=== PATIENT | male | born 1990 | race Asian ===

== ENCOUNTER 2021-05-06 07:10 | Day surgery (SDC) | payer OTHER, SELFPAY ==
[~2021-05-06] VITALS: Ht 188 cm; Wt 110.2 kg
[2021-05-06] MEDS ORDERED: LIDOCAINE 2% 100 MG/5 ML UJET TP ONE (08:16)
[2021-05-06] MEDS ORDERED: MIDAZOLAM 5 MG/5 ML VIAL ONE (08:16)
[2021-05-06] MEDS ORDERED: diphenhydrAMINE 50 MG/ML VIAL ONE (08:16)
[2021-05-06] MEDS ORDERED: fentaNYL citrate 0.05 MG/ML VIAL ONE (08:16)
[2021-05-06] MEDS ORDERED: SIMETHICONE 40 MG/0.6 ML ONE (08:17)
[2021-05-06] MEDS ORDERED: MIDAZOLAM 2 MG/2 ML VIAL IVP ONE (12:30)
[2021-05-06] MEDS ORDERED: fentaNYL citrate 0.05 MG/ML VIAL IVP ONE (12:30)
[2021-05-06] MEDS ORDERED: diphenhydrAMINE 50 MG/ML VIAL IVP ONE (12:30)
== END 2021-05-06 09:20 | disposition home or self-care (01) ==
LOC: MFCC 07:10 → MDS 07:10
PROVIDERS: ATTEND Internal Medicine Gastroenterology
DX: K62.5 Hemorrhage of anus and rectum (principal); K11.7 Disturbances of salivary secretion; F25.0 Schizoaffective disorder, bipolar type; K59.00 Constipation, unspecified; F17.210 Nicotine dependence, cigarettes, uncomplicated; Z80.0 Family history of malignant neoplasm of digestive organs; Z79.899 Other long term (current) drug therapy
CPT/HCPCS: 45378; 87426; J1200; J2250; J3010

== ENCOUNTER 2021-11-25 07:06 | Day surgery (SDC) | payer OTHER ==
[~2021-11-25] VITALS: Ht 188 cm; Wt 111.1 kg
[2021-11-25] MEDS ORDERED: MIDAZOLAM 5 MG/5 ML VIAL ONE (08:47)
[2021-11-25] MEDS ORDERED: fentaNYL citrate 0.05 MG/ML VIAL ONE ×3 (08:47→09:22)
[2021-11-25] MEDS ORDERED: diphenhydrAMINE 50 MG/ML VIAL ONE ×2 (08:47→09:21)
[2021-11-25] MEDS ORDERED: MIDAZOLAM 2 MG/2 ML VIAL ONE (09:22)
[2021-11-25] MEDS: MIDAZOLAM 2 MG/2 ML VIAL IVP ONE (09:28)
[2021-11-25] MEDS: fentaNYL citrate 0.05 MG/ML VIAL IVP ONE (09:29)
[2021-11-25] MEDS: diphenhydrAMINE 50 MG/ML VIAL IVP ONE (09:30)
== END 2021-11-25 09:59 | disposition home or self-care (01) ==
LOC: MDS 07:06 → MMU 07:07 → MDS 09:59
PROVIDERS: ATTEND Internal Medicine Gastroenterology
DX: K59.00 Constipation, unspecified (principal); K29.50 Unspecified chronic gastritis without bleeding; K44.9 Diaphragmatic hernia without obstruction or gangrene; F17.210 Nicotine dependence, cigarettes, uncomplicated; Z79.899 Other long term (current) drug therapy; Z20.822 Contact with and (suspected) exposure to COVID-19
CPT/HCPCS: 43239; 87426; J1200; J2250; J3010